=== PATIENT | male | born 1965 | race Caucasian/White ===

== ENCOUNTER 2018-01-20 22:37 | Inpatient (IN) ==
[2018-01-20] MEDS ORDERED: HYDROmorphone 2 MG/1 ML VIAL IV STA (23:30)
[2018-01-20] MEDS ORDERED: PIPERACILLIN/TAZOBACTAM 3,375 MG in SODIUM CHLORIDE 0.9% 100 ML IV STA (23:30)
[2018-01-20] MEDS ORDERED: PANTOPRAZOLE 40 MG VIAL IV STA (23:30)
[2018-01-20] MEDS ORDERED: metroNIDAZOLE INJ 500 MG in PREMIX 1 EACH IV STA (23:30)
[2018-01-20] MEDS ORDERED: SODIUM CHLORIDE 0.9% 1,000 ML IV STA (23:30)
[2018-01-20] MEDS ORDERED: ONDANSETRON 4 MG/2 ML VIAL IV STA (23:30)
[2018-01-21 01:26] LABS: Basophils # 0.1 10*3/uL (0.0-0.2); Basophils % 0.6 % (0.0-0.8); Eosinophils % 0.2 % (0.00-10.9); Hematocrit 47.4 VOL% (42.0-52.0); Hemoglobin 16.7 GM/DL (14.0-18.0); Immature Granulocytes % 0.3 %; Immature Granulocytes Absolute 0.04 #; Lymphocytes # 2.3 10*3/uL (1.4-4.0); Lymphocytes % 18.6 % (21.2-54.2); Mean Corpuscular HGB Conc 35.2 GM/DL (32-36); Mean Corpuscular Hemoglobin 32 PG (27-34); Mean Corpuscular Volume 89.6 FL (87-102); Monocytes % 8.3 % (1.7-12.7); Neutrophils # 8.7 10*3/uL (1.4-7.4); Platelet Count 224 T/CUMM (130-400); Red Blood Count 5.29 MC/CUMM (3.8-5.5); Red Cell Distribution Width 11.9 % (9.3-17.3); White Blood Count 12.1 T/CUMM (4-12)
[2018-01-21 01:53] LABS: Lactic Acid 1.1 MMOL/L (0.4-2.0)
[2018-01-21 01:56] LABS: Alanine Aminotransferase 28 U/L (16-61); Albumin 4.4 G/DL (3.4-5.0); Alkaline Phosphatase 114 U/L (45-117); Amylase 47 U/L (25-115); Aspartate Amino Transferase 21 U/L (0-37); Blood Urea Nitrogen 11 MG/DL (7-18); Calcium 9.9 MG/DL (8.5-10.1); Glucose 111 MG/DL (74-106); Osmolality,Calculated 280.3 MOS/KG (273-304); Potassium 4.1 MMOL/L (3.5-5.1); Sodium 141 MMOL/L (136-145); Total Protein 8.3 G/DL (6.4-8.3); Troponin I Only < 0.015 NG/ML (0.00-0.045)
[2018-01-21] MEDS ORDERED: ONDANSETRON 4 MG/2 ML VIAL ONE (02:00)
[2018-01-21] MEDS ORDERED: metroNIDAZOLE 500 MG/100 ML PREMIX IV ONE (02:00)
[2018-01-21] MEDS ORDERED: PANTOPRAZOLE 40 MG VIAL IV ONE (02:00)
[2018-01-21] MEDS ORDERED: HYDROmorphone 2 MG/1 ML VIAL ONE (02:01)
[2018-01-21] MEDS ORDERED: LORazepam 2 MG/1 ML VIAL IV STA (02:35)
[2018-01-21] MEDS ORDERED: ONDANSETRON 4 MG/2 ML VIAL IV PRN (02:37)
[2018-01-21] MEDS ORDERED: ACETAMINOPHEN 325 MG TABLET PO PRN (02:37)
[2018-01-21] MEDS: CIPROFLOXACIN INJ 400 MG in PREMIX 1 EACH IV SCH ×2 (06:45→18:30)
[2018-01-21] MEDS: DEXTROSE 5% LACTATED RINGERS 1,000 ML IV SCH ×2 (06:45→13:40)
[2018-01-21] MEDS: metroNIDAZOLE INJ 500 MG in PREMIX 1 EACH IV SCH ×3 (08:17→16:53)
[2018-01-21] MEDS: PANTOPRAZOLE 40 MG TABLET PO SCH (09:47)
[2018-01-21] MEDS: PIPERACILLIN/TAZOBACTAM 3,375 MG in SODIUM CHLORIDE 0.9% 100 ML IV SCH ×3 (09:48→22:05)
[2018-01-21] MEDS: amLODIPine 5 MG TABLET PO SCH (13:01)
[2018-01-22] MEDS: DEXTROSE 5% LACTATED RINGERS 1,000 ML IV SCH ×4 (03:59→18:53)
[2018-01-22] MEDS: metroNIDAZOLE INJ 500 MG in PREMIX 1 EACH IV SCH ×3 (04:09→17:49)
[2018-01-22] MEDS: PIPERACILLIN/TAZOBACTAM 3,375 MG in SODIUM CHLORIDE 0.9% 100 ML IV SCH ×3 (06:10→18:52)
[2018-01-22] MEDS: CIPROFLOXACIN INJ 400 MG in PREMIX 1 EACH IV SCH ×2 (07:48→17:50)
[2018-01-22] MEDS: PANTOPRAZOLE 40 MG TABLET PO SCH (08:55)
[2018-01-22] MEDS: amLODIPine 5 MG TABLET PO SCH (08:55)
[2018-01-22] MEDS: DOCUSATE SODIUM 100 MG CAPSULE PO SCH ×2 (10:55→20:24)
[2018-01-23] MEDS: metroNIDAZOLE INJ 500 MG in PREMIX 1 EACH IV SCH ×2 (02:17→09:30)
[2018-01-23 05:58] LABS: Basophils # 0.1 10*3/uL (0.0-0.2); Eosinophils # 0.2 10*3/uL (0.0-0.87); Eosinophils % 2.6 % (0.00-10.9); Hematocrit 43.5 VOL% (42.0-52.0); Hemoglobin 14.4 GM/DL (14.0-18.0); Immature Granulocytes % 0.3 %; Immature Granulocytes Absolute 0.02 #; Lymphocytes # 2.1 10*3/uL (1.4-4.0); Lymphocytes % 34.7 % (21.2-54.2); Mean Corpuscular HGB Conc 33.1 GM/DL (32-36); Mean Corpuscular Hemoglobin 31 PG (27-34); Mean Corpuscular Volume 93.1 FL (87-102); Mean Platelet Volume 8.9 FL (9.6-12.0); Monocytes # 0.6 10*3/uL (0.11-0.8); Monocytes % 9.4 % (1.7-12.7); Neutrophils # 3.2 10*3/uL (1.4-7.4); Platelet Count 225 T/CUMM (130-400); Red Blood Count 4.67 MC/CUMM (3.8-5.5); Red Cell Distribution Width 11.8 % (9.3-17.3); White Blood Count 6.1 T/CUMM (4-12)
[2018-01-23] MEDS: PIPERACILLIN/TAZOBACTAM 3,375 MG in SODIUM CHLORIDE 0.9% 100 ML IV SCH (07:55)
[2018-01-23] MEDS: CIPROFLOXACIN INJ 400 MG in PREMIX 1 EACH IV SCH (07:55)
[2018-01-23] MEDS: amLODIPine 5 MG TABLET PO SCH (08:47)
[2018-01-23] MEDS: DOCUSATE SODIUM 100 MG CAPSULE PO SCH (08:47)
[2018-01-23] MEDS: PANTOPRAZOLE 40 MG TABLET PO SCH (08:47)
[2018-01-23 11:06] VITALS: BP 116/79
== END 2018-01-23 12:29 | disposition home or self-care (01) | DRG 392 ==
LOC: N.ED 22:37 → N.EDINP 01-21 02:37 → N.3E 01-21 03:30
PROVIDERS: ADMIT Surgery; ATTEND Surgery

== ENCOUNTER 2018-02-07 05:46 | Inpatient (IN) ==
[2018-01-15 13:54] LABS: Basophils # 0.1 10*3/uL (0.0-0.2); Basophils % 1.3 % (0.0-0.8); Eosinophils % 0.5 % (0.00-10.9); Hematocrit 46.2 VOL% (42.0-52.0); Hemoglobin 15.6 GM/DL (14.0-18.0); Immature Granulocytes % 0.3 %; Immature Granulocytes Absolute 0.02 #; Lymphocytes # 2.3 10*3/uL (1.4-4.0); Lymphocytes % 28.2 % (21.2-54.2); Mean Corpuscular HGB Conc 33.8 GM/DL (32-36); Mean Corpuscular Hemoglobin 31 PG (27-34); Mean Corpuscular Volume 92.8 FL (87-102); Monocytes # 0.6 10*3/uL (0.11-0.8); Monocytes % 7.3 % (1.7-12.7); Neutrophils % 62.4 % (38.7-73.9); Platelet Count 232 T/CUMM (130-400); Red Blood Count 4.98 MC/CUMM (3.8-5.5); Red Cell Distribution Width 11.6 % (9.3-17.3)
[2018-01-15 14:09] LABS: Albumin 4.2 G/DL (3.4-5.0); Bilirubin,Total 0.9 MG/DL (0.2-1.0); Calcium 9.3 MG/DL (8.5-10.1); Osmolality,Calculated 281.1 MOS/KG (273-304); Potassium 4.4 MMOL/L (3.5-5.1); Total Protein 7.7 G/DL (6.4-8.3)
[2018-02-01 15:35] LABS: Basophils # 0.1 10*3/uL (0.0-0.2); Eosinophils # 0.1 10*3/uL (0.0-0.87); Hematocrit 47.2 VOL% (42.0-52.0); Immature Granulocytes % 0.4 %; Immature Granulocytes Absolute 0.03 #; Lymphocytes # 2.9 10*3/uL (1.4-4.0); Lymphocytes % 36.1 % (21.2-54.2); Mean Corpuscular HGB Conc 33.9 GM/DL (32-36); Mean Corpuscular Hemoglobin 31 PG (27-34); Mean Corpuscular Volume 90.6 FL (87-102); Mean Platelet Volume 8.4 FL (9.6-12.0); Monocytes # 0.7 10*3/uL (0.11-0.8); Monocytes % 8.6 % (1.7-12.7); Neutrophils # 4.3 10*3/uL (1.4-7.4); Neutrophils % 52.9 % (38.7-73.9); Platelet Count 315 T/CUMM (130-400); Red Blood Count 5.21 MC/CUMM (3.8-5.5); Red Cell Distribution Width 11.7 % (9.3-17.3); White Blood Count 8.1 T/CUMM (4-12)
[2018-02-01 16:19] LABS: Calcium 9.2 MG/DL (8.5-10.1); Osmolality,Calculated 279.3 MOS/KG (273-304); Potassium 4.1 MMOL/L (3.5-5.1)
[~2018-02-07 05:46] MED LIST: ALVIMOPAN 12 MG CAPSULE PO SCH; cefOXitin 1,000 MG in SYRINGE 1 EACH IV ONE
[2018-02-07] MEDS ORDERED: cefOXitin 2,000 MG in SYRINGE 1 EACH IV ONE (06:00)
[2018-02-07] MEDS ORDERED: ALVIMOPAN 12 MG CAPSULE ONE (06:06)
[2018-02-07] MEDS: LACTATED RINGERS 1,000 ML IV SCH ×4 (06:31→10:06)
[2018-02-07] MEDS ORDERED: TISSUE ADHESIVE 1 EACH APPLICATOR TOP ONE (06:39)
[2018-02-07] MEDS ORDERED: LIDOCAINE 1%/EPI INJ 20 ML VIAL ONE (06:39)
[2018-02-07] MEDS ORDERED: BUPIVACAINE 0.25% 50 ML VIAL ONE (06:40)
[2018-02-07] MEDS ORDERED: INDOCYANINE GREEN 25 MG VIAL IV ONE (09:05)
[2018-02-07] MEDS ORDERED: ONDANSETRON 4 MG/2 ML VIAL IV PRN (10:08)
[2018-02-07] MEDS ORDERED: ROPIVACAINE 0.5% 30 ML VIAL ONE (10:20)
[2018-02-07 10:29] LABS: Apearance,Urine CLEAR (Clear); Bacteria,Urine Occasional /HPF (Few); Bilirubin,Urine Negative (Negative); Blood, Urine Negative (Negative); Glucose,Urine (UA) Negative (Negative); Ketones,Urine Negative (Negative); Mucus,Urine Occasional /LPF (Occasional); Nitrite,Urine Negative (Negative); Protein,Urine Negative; RBC,Urine <1 /HPF (0-4); Urine Color Yellow (Yellow); Urine Specific Gravity 1.016 (1.001-1.035); Urine Urobilinogen < 2.0 EU/DL (0.2-1.0); WBC,Urine <1 /HPF (0-6)
[2018-02-07] MEDS: MEPERIDINE 25 MG/1 ML VIAL IV PRN ×2 (10:38→10:48)
[2018-02-07] MEDS ORDERED: MEPERIDINE 25 MG/1 ML VIAL ONE (10:38)
[2018-02-07] MEDS ORDERED: DESFLURANE 1 UNIT/15 MINUTE INH ONE (11:06)
[2018-02-07] MEDS ORDERED: MIDAZOLAM 2 MG/2 ML VIAL ONE (11:06)
[2018-02-07] MEDS ORDERED: PROPOFOL 200 MG/20 ML VIAL IV ONE (11:06)
[2018-02-07] MEDS ORDERED: fentaNYL 100 MCG/2 ML VIAL ONE (11:06)
[2018-02-07] MEDS ORDERED: SUCCINYLCHOLINE 200 MG/10 ML VIAL ONE (11:07)
[2018-02-07] MEDS ORDERED: ROCURONIUM 100 MG/10 ML VIAL IV ONE (11:07)
[2018-02-07] MEDS ORDERED: LACTATED RINGERS 1,000 ML IV ONE (11:07)
[2018-02-07] MEDS ORDERED: ONDANSETRON 4 MG/2 ML VIAL ONE (11:07)
[2018-02-07] MEDS ORDERED: DEXAMETHASONE 10 MG/1 ML VIAL ONE (11:07)
[2018-02-07] MEDS ORDERED: PHENYLEPHRINE 1 MG/10 ML SYRINGE IV ONE (11:07)
[2018-02-07] MEDS ORDERED: ACETAMINOPHEN 1,000 MG/100 ML VIAL IV ONE (11:07)
[2018-02-07] MEDS ORDERED: GLYCOPYRROLATE 0.4 MG/2 ML VIAL ONE (11:07)
[2018-02-07 11:28] LABS: Hematocrit 45.9 VOL% (42.0-52.0)
[2018-02-07] MEDS: DEXTROSE 5% LACTATED RINGERS 1,000 ML IV SCH ×2 (11:54→20:13)
[2018-02-07] MEDS: MORPHINE PCA 30 MG/30 ML SYRINGE IV SCH (11:55)
[2018-02-07] MEDS: cefOXitin 2,000 MG in SYRINGE 1 EACH IV SCH ×2 (13:20→20:13)
[2018-02-07 18:12] LABS: Hematocrit 48.4 VOL% (42.0-52.0); Hemoglobin 16.4 GM/DL (14.0-18.0)
[2018-02-07] MEDS: ALVIMOPAN 12 MG CAPSULE PO SCH (20:12)
[2018-02-08] MEDS: cefOXitin 2,000 MG in SYRINGE 1 EACH IV SCH (03:55)
[2018-02-08] MEDS: DEXTROSE 5% LACTATED RINGERS 1,000 ML IV SCH ×3 (06:14→20:28)
[2018-02-08] MEDS: ENOXAPARIN 40 MG/0.4 ML SYRINGE SUBCUT SCH (06:14)
[2018-02-08 06:38] LABS: Basophils % 0.1 % (0.0-0.8); Hemoglobin 14.2 GM/DL (14.0-18.0); Immature Granulocytes % 0.3 %; Immature Granulocytes Absolute 0.05 #; Lymphocytes # 0.8 10*3/uL (1.4-4.0); Lymphocytes % 5.5 % (21.2-54.2); Mean Corpuscular HGB Conc 34.6 GM/DL (32-36); Mean Corpuscular Hemoglobin 31 PG (27-34); Mean Corpuscular Volume 89.5 FL (87-102); Mean Platelet Volume 8.9 FL (9.6-12.0); Monocytes % 6.5 % (1.7-12.7); Neutrophils % 87.6 % (38.7-73.9); Platelet Count 306 T/CUMM (130-400); Red Blood Count 4.58 MC/CUMM (3.8-5.5); Red Cell Distribution Width 11.8 % (9.3-17.3); White Blood Count 14.8 T/CUMM (4-12)
[2018-02-08 07:18] LABS: Calcium 9.3 MG/DL (8.5-10.1); Osmolality,Calculated 282.1 MOS/KG (273-304); Potassium 4.3 MMOL/L (3.5-5.1)
[2018-02-08] MEDS: ALVIMOPAN 12 MG CAPSULE PO SCH ×2 (09:07→20:30)
[2018-02-08] MEDS: PANTOPRAZOLE 40 MG TABLET PO SCH (09:07)
[2018-02-08] MEDS: MORPHINE PCA 30 MG/30 ML SYRINGE IV SCH (09:29)
[2018-02-09 06:20] LABS: Basophils % 0.4 % (0.0-0.8); Eosinophils % 0.1 % (0.00-10.9); Hematocrit 38.8 VOL% (42.0-52.0); Hemoglobin 13.2 GM/DL (14.0-18.0); Immature Granulocytes % 0.3 %; Immature Granulocytes Absolute 0.03 #; Lymphocytes # 2.3 10*3/uL (1.4-4.0); Lymphocytes % 23.8 % (21.2-54.2); Mean Corpuscular Hemoglobin 31 PG (27-34); Mean Corpuscular Volume 92.4 FL (87-102); Mean Platelet Volume 8.5 FL (9.6-12.0); Monocytes # 0.8 10*3/uL (0.11-0.8); Monocytes % 8.4 % (1.7-12.7); Neutrophils # 6.3 10*3/uL (1.4-7.4); Platelet Count 220 T/CUMM (130-400); Red Cell Distribution Width 11.9 % (9.3-17.3); White Blood Count 9.5 T/CUMM (4-12)
[2018-02-09] MEDS: ENOXAPARIN 40 MG/0.4 ML SYRINGE SUBCUT SCH (06:34)
[2018-02-09] MEDS: DEXTROSE 5% LACTATED RINGERS 1,000 ML IV SCH ×3 (06:39→23:06)
[2018-02-09] MEDS: amLODIPine 5 MG TABLET PO SCH (08:28)
[2018-02-09] MEDS: PANTOPRAZOLE 40 MG TABLET PO SCH (08:28)
[2018-02-09] MEDS ORDERED: MORPHINE 2 MG/1 ML SYRINGE IV PRN (12:42)
[2018-02-09] MEDS: MORPHINE PCA 30 MG/30 ML SYRINGE IV SCH ×2 (14:01→14:03)
[2018-02-10] MEDS: ENOXAPARIN 40 MG/0.4 ML SYRINGE SUBCUT SCH (05:35)
[2018-02-10 07:28] VITALS: BP 115/78
[2018-02-10] MEDS: DEXTROSE 5% LACTATED RINGERS 1,000 ML IV SCH (08:43)
[2018-02-10] MEDS: PANTOPRAZOLE 40 MG TABLET PO SCH (08:44)
[2018-02-10] MEDS: amLODIPine 5 MG TABLET PO SCH (08:44)
== END 2018-02-10 10:04 | disposition home or self-care (01) | DRG 331 ==
LOC: N.OR 05:46 → N.SDSINP 06:10 → N.5E 10:08
PROVIDERS: ADMIT Surgery; ATTEND Surgery